=== PATIENT | female | born 1970 | race Caucasian/White ===

== ENCOUNTER 2024-07-08 01:06 | Inpatient (IN) | payer OTHER, MEDICAID ==
[2024-07-08 01:58] LABS: #Basophils 0.04 10x3/uL (0.0-0.2); %Basophils 0.4 % (0.0-1.0); %Eosinophils 0.4 % (0.0-10.0); %Lymphocytes 5.4 % (21.0-51.0); %Monocytes 5.1 % (0.0-10.0); Hematocrit 33.2 % (36.0-47.0); Hemoglobin 9.7 g/dL (12.0-16.0); Mean Corpuscular HGB CONC 29.2 g/dL (32.0-36.0); Mean Corpuscular Hemoglobin 23.7 pg (27.0-31.0); Platelet Count 289 10x3/uL (130-400); RBC Distribution Width 19.9 % (11.5-14.5)
[2024-07-08] MEDS ORDERED: Albuterol 2.5 MG (0.5 mL) NEB ONE (02:00)
[2024-07-08] MEDS ORDERED: Ipratropium Bromide 2.5 ml Neb ONE (02:01)
[2024-07-08] MEDS ORDERED: Azithromycin 500 MG VIAL ONE (02:01)
[2024-07-08] MEDS ORDERED: Dexamethasone 10 MG/ML VIAL ONE (02:01)
[2024-07-08 02:15] LABS: ALT (SGPT) 18 U/L (8-55); AST (SGOT) 35 U/L (5-34); Albumin 2.9 g/dL (3.5-5.0); Alkaline Phosphatase 188 U/L (40-110); Anion Gap 14 mmol/L (10-20); BUN (Urea Nitrogen) 22 mg/dL (9.8-20.1); Bilirubin, Total 0.2 mg/dL (0.2-1.2); Calc. Creatinine Clearance 0 mL/min (70-130); Carbon Dioxide 26 mmol/L (22-29); Chloride 97 mmol/L (98-107); Estimated GFR 53; Globulin 3.8 g/dL (2.4-3.5); Glucose 234 mg/dL (70-105); Potassium 3.4 mmol/L (3.5-5.1); Protein, Total 6.7 g/dL (6.0-8.3); Sodium 134 mmol/L (136-145)
[2024-07-08 02:18] LABS: Troponin I 0.072 ng/mL (< 0.028)
[2024-07-08] MEDS ORDERED: Ipratropium/Albuterol 3 ML NEB NEB PRN (03:17)
[2024-07-08] MEDS ORDERED: Senokot S 8.6-50 MG TAB PO PRN (03:17)
[2024-07-08] MEDS ORDERED: Calcium Carbonate 500 MG ChewTAB PO PRN (03:17)
[2024-07-08] MEDS ORDERED: Benzonatate 100 MG CAP PO PRN (03:22)
[2024-07-08] MEDS ORDERED: Furosemide 40 MG (4 mL) VIAL ONE (03:28)
[2024-07-08] MEDS ORDERED: Aspirin Chewable 81 MG TAB ONE (03:28)
[2024-07-08 05:06] LABS: Troponin I 0.067 ng/mL (< 0.028)
[2024-07-08 05:32] VITALS: BMI 36.8
[2024-07-08] MEDS: Methocarbamol 1 GM (10 mL) VIAL SLOW IVP SCH (06:22)
[2024-07-08] MEDS: Potassium Chloride 20 MEQ TAB PO SCH (06:28)
[2024-07-08 07:08] LABS: Actual Bicarbonate (HCO3v) 28.5 mEq/L (22-28); Base Excess 3.4 mEq/L (-2.0 to +3.0); Calcium, Ionized (venous) 0.98 mmol/L (1.16-1.32); Chloride (VBG) 100 mmol/L (98-106); Hematocrit-VBG 33 % (36.0-47.0); Hemoglobin (Hb) 11.2 g/dL (11.7-16.0); Sodium 136 mmol/L (133-146); pH (venous) 7.413 (7.32-7.43)
[2024-07-08 07:54] LABS: Anion Gap 17 mmol/L (10-20); BUN (Urea Nitrogen) 20 mg/dL (9.8-20.1); Calc. Creatinine Clearance 78 mL/min (70-130); Calcium 8.4 mg/dL (7.8-10.44); Carbon Dioxide 23 mmol/L (22-29); Chloride 100 mmol/L (98-107); Estimated GFR 57; Glucose 259 mg/dL (70-105); Magnesium 2.3 mg/dL (1.6-2.6); Potassium 3.8 mmol/L (3.5-5.1); Sodium 136 mmol/L (136-145)
[2024-07-08 07:59] LABS: Troponin I 0.074 ng/mL (< 0.028)
[2024-07-08] MEDS ORDERED: Enoxaparin 40 MG (0.4 mL) SYRINGE SC SCH (09:00)
[2024-07-08] MEDS ORDERED: Glucagon 1 MG/ML KIT IM PRN (09:13)
[2024-07-08] MEDS ORDERED: Dextrose 5% in Water 1,000 ML IV PRN (09:13)
[2024-07-08] MEDS ORDERED: Dextrose 50% Abboject 50 ML SYRINGE SLOW IVP PRN (09:13)
[2024-07-08] MEDS: Nicotine 21 MG PATCH TD SCH (09:42)
[2024-07-08] MEDS: methylPREDNISolone Sod Succ 40 MG VIAL IVP SCH (09:42)
[2024-07-08] MEDS: Doxycycline 100 MG CAP PO SCH (09:42)
[2024-07-08] MEDS: Insulin Lispro 100 UNIT/ML 10 ML VIAL SC PRN (14:24)
[2024-07-08] MEDS: Furosemide 40 MG (4 mL) VIAL SLOW IVP SCH (14:25)
[2024-07-08] MEDS: Rivaroxaban 10 MG TAB PO SCH (18:23)
[2024-07-08] MEDS: Atorvastatin Calcium 40 MG TAB PO SCH (20:14)
[2024-07-09 04:22] LABS: #Basophils Less than 0.03 10x3/uL (0.0-0.2); #Eosinophils Less than 0.03 10x3/uL (0.0-0.7); %Basophils 0.2 % (0.0-1.0); %Lymphocytes 7.8 % (21.0-51.0); %Monocytes 2.8 % (0.0-10.0); %Neutrophils 88.4 % (42.0-75.0); Hematocrit 38.2 % (36.0-47.0); Hemoglobin 11.1 g/dL (12.0-16.0); Mean Corpuscular HGB CONC 29.1 g/dL (32.0-36.0); Mean Corpuscular Hemoglobin 23.5 pg (27.0-31.0); Mean Corpuscular Volume 80.9 fL (78.0-98.0); Mean Platelet Volume 9.4 fL (7.4-10.4); Platelet Count 320 10x3/uL (130-400); RBC Distribution Width 19.9 % (11.5-14.5); Red Blood Cell (RBC) Count 4.72 mill/uL (4.20-5.40)
[2024-07-09 04:36] LABS: ALT (SGPT) 14 U/L (8-55); AST (SGOT) 14 U/L (5-34); Albumin 2.9 g/dL (3.5-5.0); Alkaline Phosphatase 178 U/L (40-110); Anion Gap 13 mmol/L (10-20); BUN (Urea Nitrogen) 23 mg/dL (9.8-20.1); Bilirubin, Total 0.3 mg/dL (0.2-1.2); Calc. Creatinine Clearance 95 mL/min (70-130); Calcium 9.1 mg/dL (7.8-10.44); Carbon Dioxide 27 mmol/L (22-29); Chloride 103 mmol/L (98-107); Estimated GFR 73; Globulin 4.1 g/dL (2.4-3.5); Glucose 160 mg/dL (70-105); Magnesium 2.4 mg/dL (1.6-2.6); Potassium 4.2 mmol/L (3.5-5.1); Sodium 139 mmol/L (136-145)
[2024-07-09] MEDS: Ondansetron PF 4 MG/2 ML Vial IVP PRN (17:36)
[2024-07-09] MEDS: Ipratropium/Albuterol 3 ML NEB EZPAP SCH (19:02)
[2024-07-09] MEDS: methylPREDNISolone Sod Succ 40 MG VIAL IVP SCH (19:53)
[2024-07-10 07:47] VITALS: BP 143/65; TEMP 98
[2024-07-10 08:27] LABS: #Basophils Less than 0.03 10x3/uL (0.0-0.2); #Eosinophils Less than 0.03 10x3/uL (0.0-0.7); %Basophils 0.1 % (0.0-1.0); %Lymphocytes 17.2 % (21.0-51.0); %Monocytes 4.3 % (0.0-10.0); %Neutrophils 77.6 % (42.0-75.0); Hematocrit 39.1 % (36.0-47.0); Hemoglobin 11.2 g/dL (12.0-16.0); Mean Corpuscular HGB CONC 28.6 g/dL (32.0-36.0); Mean Corpuscular Hemoglobin 23.2 pg (27.0-31.0); Mean Corpuscular Volume 81.1 fL (78.0-98.0); Mean Platelet Volume 9.4 fL (7.4-10.4); Platelet Count 342 10x3/uL (130-400); RBC Distribution Width 20.1 % (11.5-14.5); Red Blood Cell (RBC) Count 4.82 mill/uL (4.20-5.40)
[2024-07-10 08:35] LABS: Anion Gap 16 mmol/L (10-20); BUN (Urea Nitrogen) 28 mg/dL (9.8-20.1); Calc. Creatinine Clearance 91 mL/min (70-130); Calcium 9.4 mg/dL (7.8-10.44); Carbon Dioxide 29 mmol/L (22-29); Chloride 99 mmol/L (98-107); Estimated GFR 71; Glucose 175 mg/dL (70-105); Sodium 140 mmol/L (136-145)
[2024-07-10] MEDS: methylPREDNISolone Sod Succ 40 MG VIAL IVP SCH (08:40)
[2024-07-10 09:19] LABS: Anisocytosis SLIGHT = 6-15 cells HPF (0-5); Hypochromia SLIGHT = 6-15 cells HPF (0-5); Platelet Adequacy Comment Platelets Normal; Poikilocytosis SLIGHT = 6-15 cells HPF (0-5); Polychromasia MODERATE = 3-4 cells HPF (0-2)
[2024-07-11] MEDS ORDERED: FLU (Fluarix Triv) TS24-25(6MOS UP)/PF 45 MCG/0.5 ML Syringe IM ONE (09:00)
== END 2024-07-10 09:45 | disposition left against medical advice (07) | DRG 291 ==
LOC: ERS 01:06 → SUATTDRO 01:06 → 2NO 03:16
PROVIDERS: ADMIT Internal Medicine; ATTEND Student in an Organized Health Care Education/Training Program
DX: I11.0 Hypertensive heart disease with heart failure (principal); I50.33 Acute on chronic diastolic (congestive) heart failure; J44.1 Chronic obstructive pulmonary disease with (acute) exacerbation; I24.89 Other forms of acute ischemic heart disease; I48.91 Unspecified atrial fibrillation; I25.10 Atherosclerotic heart disease of native coronary artery without angina pectoris; I73.9 Peripheral vascular disease, unspecified; F17.210 Nicotine dependence, cigarettes, uncomplicated; Z95.1 Presence of aortocoronary bypass graft; Z88.8 Allergy status to other drugs, medicaments and biological substances; I50.9 Heart failure, unspecified
CPT/HCPCS: 36415; 36416; 71045; 80048; 80053; 82805; 83735; 83880; 84145; 84484; 85025; 87428; 93005; 93306; 93798; 94640; 94760; 96374; 96375; J0456; J1100; J1815; J1940; J2405; J2800; J2919; J7611; J7620; J7644